=== PATIENT | male | born 1945 | race Caucasian/White ===

== ENCOUNTER 2017-01-29 12:43 | Emergency (ER) | payer MEDICARE ==
[~2017-01-29 12:43] MED LIST: AMLO10TA2 PO; CITA10TA8 PO; HYDR-2867 PO; HYDR12.58 PO; LOSA100T6 PO; METO25TA9 PO
--- NOTE | 2017-01-29 13:36 | PHYS DOC ---
Past Medical History Past Medical History: CVA, Depression, Hypertension Additional Past Medical Histor: Cataracts Past Surgical History: Other Additional Past Surgical Histo: Shoulder, Cataract Alcohol Use: None Drug Use: None Adult General Chief Complaint Chief Complaint: GENERAL COMPLAINT [facility] HPI Patient is a 71 year old male who presents with for evaluation of possible falls recently. She states he uses his walker inconsistently. He was complaining of left arm pain after taking out the trash a few days ago; this has resolved. He is otherwise at his mental baseline per patient and and son. He has no complaints at this time. He denies headache, vision changes, dizziness, numbness, tingling, focal weakness, chest pain, dyspnea, palpitations , diaphoresis, leg pain or swelling, abdominal pain, diarrhea, dysuria. He is eating and drinking normal. Has normal bowel and urinary habits. states she wanted him to get checked out today and does not have a largely specific concern but could not get into PCP, so brought him here. Review of Systems Review of Systems Constitutional: Denies fever or chills [] Eyes: Denies change in visual acuity, redness, or eye pain [] HENT: Denies nasal congestion or sore throat [] Respiratory: Denies cough or shortness of breath [] Cardiovascular: No additional information not addressed in HPI [] GI: Denies abdominal pain, nausea, vomiting, bloody stools or diarrhea [] : Denies dysuria or hematuria [] Musculoskeletal: Denies back pain or joint pain [] Integument: Denies rash or skin lesions [] Neurologic: Denies headache, focal weakness or sensory changes [] Endocrine: Denies polyuria or polydipsia [] Allergies Allergies Allergies Coded Allergies Type Severity Reaction Last Updated Verified No Known Allergies Allergy Unknown 01/12/16 Yes Physical Exam Physical Exam Constitutional: Well developed, well nourished, no acute distress, non-toxic appearance. [] HENT: Normocephalic, atraumatic, bilateral TMs normal, oropharynx moist, no oral exudates, nose normal. No francois sign, hemotympanum, or raccoon [] Eyes: PERRLA, EOMI, conjunctiva normal, no discharge. [] Neck: Normal range of motion, no tenderness, supple. [] Cardiovascular:Heart rate regular rhythm [] Lungs & Thorax: Bilateral breath sounds clear to auscultation [] Abdomen: Bowel sounds normal, soft, no tenderness. [] Skin: Warm, dry, no erythema, no rash. [] Back: No tenderness, no CVA tenderness. [] Extremities: No tenderness, ROM intact, no edema. [] Neurologic: Alert and oriented X 3, normal motor function, normal sensory function, no focal deficits noted, cranial nerves II through XII intact, no extremity drift. [] Psychologic: Affect normal, judgement normal, mood normal. [] Current Patient Data Vital Signs Vital Signs Date Time Temp Pulse Resp B/P Pulse Ox O2 Delivery O2 Flow Rate FiO2 01/29/17 12:43 97.1 76 20 220/99 95 Room Air 97.1 Lab Values Laboratory Tests Test 01/29/17 12:55 Sodium Level 144mmol/L (136-145) Potassium Level 4.0mmol/L (3.5-5.1) Chloride Level 105mmol/L (98-107) Carbon Dioxide Level 31mmol/L (21-32) Anion Gap 8 (6-14) Blood Urea Nitrogen 15mg/dL (8-26) Creatinine 1.0mg/dL (0.7-1.3) Estimated GFR (Cockcroft-Gault) 73.2 Glucose Level 112mg/dL (70-99) H Calcium Level 8.8mg/dL (8.5-10.1) Laboratory Tests 01/29/17 12:55 EKG EKG EKG as interpreted by me as normal sinus rhythm, rate 64, no ST-T changes, normal intervals, no ectopy Course & Med Decision Making Course & Med Decision Making Pertinent Labs and Imaging studies reviewed. (See chart for details) Workup is unremarkable. He continues to feel well and would like to go home. Return precautions given. He and family understand and agree with plan. Dragon Disclaimer Dragon Disclaimer This electronic medical record was generated, in whole or in part, using a voice recognition dictation system. Departure Departure Impression: Primary Impression: Left arm pain Disposition: HOME, SELF-CARE Condition: STABLE Referrals: BASIA CLEMENS MD (PCP) Patient Instructions: Fall Prevention and Home Safety, [id number] Additional Instructions: Follow-up with your primary care doctor. Return for any concerns. Jessica ESCOBEDO MD Jan 29, 2017 13:36
[2017-01-29 13:46] LABS: CALCIUM 8.8 mg/dL (8.5-10.1); GFR 73.2
[2017-01-29 14:15] VITALS: BP 190/82
--- NOTE | 2017-01-30 06:47 | EKG ---
[facility] [address] [place] [id number] Test Date: 2017-01-29 Test Time: 12:58:41 Pat Name: CHARLIE VALERIO Department: Room: Gender: M Lubricating Specialist: : [id number] Requested By: Jessica ESCOBEDO Order Number: [id number] Reading MD: Asuncion Mohr Measurements Intervals [place] Rate: 64 P: VA: QRS: 36 QRSD: 90 T: 46 QT: 370 QTc: 381 Interpretive Statements SINUS RHYTHM, NORMAL ECG Electronically Signed On 01-31-2017 20:03:24 CDT by Asuncion Mohr
== END 2017-01-29 14:25 | disposition home or self-care (01) ==
LOC: ER 12:43
DX: M79.602 Pain in left arm (principal); F32.9 Major depressive disorder, single episode, unspecified; I10 Essential (primary) hypertension; Z86.73 Personal history of transient ischemic attack (TIA), and cerebral infarction without residual deficits; Z98.49 Cataract extraction status, unspecified eye
CPT/HCPCS: 36415; 80048; 93005; 99285-25